=== PATIENT | male | born 1980 | race Caucasian/White ===

== ENCOUNTER 2022-08-31 05:02 | Day surgery (SDC) | payer MEDICARE, MEDICAID ==
[2022-08-21 16:44] LABS: CLARITY,URINE CLEAR (Clear); COLOR,URINE YELLOW (Yellow); GLUCOSE, URINE NEGATIVE (Neg); KETONES,URINE NEGATIVE (Neg); LEUKOCYTE ESTERASE ,URINE NEGATIVE (Neg); NITRITES, URINE NEGATIVE (Neg); OCCULT BLOOD,URINE NEGATIVE (Neg); PH,URINE 6.5 (4.8-8.0); PROTEIN,URINE NEGATIVE (Neg); UROBILINOGEN,URINE 0.2 E.U/dL (0.2-1.0)
[2022-08-21 16:48] LABS: UA COLLECTION TYPE CLN CATCH MIDSTREAM
[~2022-08-31] VITALS: Ht 180.3 cm; Wt 81.1 kg
[2022-08-31] VITALS (16 sets, daily range): BP systolic 103–134; BP diastolic 64–97
[~2022-08-31 05:02] MED LIST: BENZTROPINE PO; BUSP7.5T3 PO; CHLO200T20 PO; CHLO25TA68 PO; CYCL-394 PO; DIVA500T2 PO; GABA300S PO; PALI6TAB PO; PRAZ5CAP PO; TRAM50TA2 PO; [UNRECOGNIZED DRUG - CODE] PO; ringers solution, lacted 1,000 ML IV SCH
[2022-08-31] MEDS ORDERED: famotidine 20mg tablet PO ONE (05:30)
[2022-08-31] MEDS ORDERED: vancomycin 1,500 MG in NS 300ml IV soln IV ONE (05:30)
[2022-08-31] MEDS ORDERED: BUPIVAcaine 0.5% inj/PF 0 ML ONE (06:49)
[2022-08-31] MEDS ORDERED: bacitracin 15gm ointment TP ONE ×2 (06:49→15:00)
--- NOTE | 2022-08-31 08:30 | NUR ---
PT ARRIVED FOR SURGERY WITH REAL ESTATE MANAGEMENT SPECIALIST. PT STATES HE HAS A CONSERVATOR FOR HIS FINANCES BUT HE MAKES ALL MEDICAL DECISIONS AND IS ABLE TO CONSENT FOR SURGERY. ATTEMPTED TO CONTACT CONSERVATOR TO VERIFY. LEFT VOICE MESSAGE AND DID NOT RECEIVE CALL BACK. PT IS ALERT AND ORIENTED X4 AND HAS BEEN COOPERATIVE AND POLITE.
[2022-08-31] MEDS ORDERED: labetalol 20mg/4ml (5mg/ml) syringe IV PRN (09:35)
[2022-08-31] MEDS ORDERED: fentaNYL/PF 50MCG/1 ML 2ML syringe IV PRN ×2 (09:35)
[2022-08-31] MEDS ORDERED: hydrALAZINE 20mg/ml inj. IV PRN (09:35)
[2022-08-31] MEDS ORDERED: morphine 2 MG/ML inj. syringe IV PRN (09:35)
[2022-08-31] MEDS ORDERED: morphine 4 MG/ML inj SYRINge IV PRN (09:35)
[2022-08-31] MEDS ORDERED: ondansetron/PF 4mg/2ml inj IV PRN (09:35)
[2022-08-31] MEDS ORDERED: ringers solution, lacted 1,000 ML IV SCH (09:35)
[2022-08-31] MEDS ORDERED: ATIVAN (09:41)
[2022-08-31 09:43] LABS: BASOPHILS % (AUTO) 0.9 % (0-1); EOSINOPHILS % (AUTO) 0.2 % (0-6); LYMPHOCYTES # (AUTO) 1.1 X10'3 (1.1-4.8); LYMPHOCYTES % (AUTO) 33.2 % (21-51); MEAN CORPUSCULAR HEMOGLOBIN 34.5 PG (27.0-31.0); MEAN CORPUSCULAR VOLUME 98.6 FL (78-98); MEAN PLATELET VOLUME 7.6 FL (7.4-10.4); MONOCYTES # (AUTO) 0.4 X10'3 (0-0.9); MONOCYTES % (AUTO) 10.6 % (2-12); NEUTROPHILS # (AUTO) 1.9 X10'3 (1.8-7.7); NEUTROPHILS % (AUTO) 55.1 % (42-75); PRE OP HEMATOCRIT 44.5 % (42.0-52.0); PRE OP HEMOGLOBIN 15.5 g/dL (14.0-17.9); PRE OP PLATELET COUNT 101 X10'3 (140-440); RED BLOOD COUNT 4.51 X10'6 (4.70-6.10); RED CELL DISTRIBUTION WIDTH 13.2 % (11.5-14.5)
[2022-08-31 10:04] LABS: ALBUMIN 3.6 G/DL (3.4-5.0); ALKALINE PHOSPHATASE 67 IU/L (46-116); BLOOD UREA NITROGEN 7 MG/DL (7-18); BUN/CREATININE RATIO 7.4 (5.4-32.0); CHLORIDE 106 MMOL/L (99-107); CREATININE 0.94 MG/DL (0.60-1.10); PRE OP ANION GAP 9 (8-16); PRE OP AST 92 U/L (10-37); PRE OP BILIRUB, TOTAL 0.8 MG/DL (0.0-1.0); PRE OP GLUCOSE 94 MG/DL (70-104); PRE OP POTASSIUM 4.1 MMOL/L (3.4-5.1); PRE OP SODIUM 139 MMOL/L (135-145); TOTAL CARBON DIOXIDE 23.6 MMOL/L (24-32); TOTAL PROTEIN 7.3 G/DL (6.4-8.2); eGFR 89 ML/MIN
[2022-08-31 10:41] LABS: PRE OP ALT 127 U/L (30-65)
--- NOTE | 2022-08-31 10:47 | NUR ---
RECEIVED 2 RN CONSENT FOR SURGERY VIA PHONE WITH CONSERVATOR ROSARIO ANSARI. ROSARIO CONFIRMED PT ABLE TO SIGN HIMSELF REGARDING THE SURGERY. MD JOHNSON.
[2022-08-31] MEDS ORDERED: dexamethasone sod phosphate 4mg/ml inj. ONE (10:56)
[2022-08-31] MEDS ORDERED: ondansetron/PF 4mg/2ml inj ONE (10:56)
[2022-08-31] MEDS ORDERED: LIDOcaine 1%/PF 5ML 10 MG/ML VIAL ONE (10:56)
[2022-08-31] MEDS ORDERED: propofol inj 20 ML IV ONE (10:56)
[2022-08-31] MEDS ORDERED: midazolam 1 mg/ML 2ml injection ONE (10:56)
[2022-08-31] MEDS ORDERED: fentaNYL/PF 50MCG/1 ML 2ML syringe ONE ×2 (10:56→14:10)
[2022-08-31] MEDS ORDERED: ROPIVAcaine 0.5% (5mg/ml) 30ml vial ONE ×2 (10:58)
[2022-08-31] MEDS ORDERED: sevoflurane 250ml liquid IH ONE (11:07)
[2022-08-31] MEDS ORDERED: ketorolac trometh. 30mg/ml inj. ONE (13:55)
[2022-08-31] MEDS ORDERED: acetaminophen 1,000mg/100ml IV 100 ML IV ONE (13:57)
--- NOTE | 2022-08-31 16:10 | NUR ---
Received from OR via [facility], accompanied by Anesthesiologist DR FLEMING and report given by Anesthesiolgist. PT PRESENTS WITH PIV 20G RIGHT FOREARM, 18G RIGHT EJ, RIGHT LOWER LEG SPLNIT WITH CHAVA WRAP [facility] MOSES. Addendum: 08/31/22 at 1632 by Jessica Cornelius RN, RN Amended: Links added.
--- NOTE | 2022-08-31 18:30 | NUR ---
I HAVE REVIEWED D/C INSTRUCTIONS WITH PATIENT AND THEY HAVE VERBALIZED UNDERSTANDING OF INSTRUCTIONS. PATIENT D/C HOME WITH ALL BELONGINGS AND FAMILY GAVE TRANSPORT. PT GIVEN BLUE FOAM LEG ELEVATOR, PT GIVEN CRUTCHES FOR HOME USE. Addendum: 08/31/22 at 1903 by Jessica Cornelius RN, RN Amended: Links added.
== END 2022-08-31 18:30 | disposition home or self-care (01) ==
LOC: PAS 05:02
PROVIDERS: ATTEND Podiatrist Foot & Ankle Surgery
DX: M87.874 Other osteonecrosis, right foot (principal); M19.071 Primary osteoarthritis, right ankle and foot; M21.6X1 Other acquired deformities of right foot; I10 Essential (primary) hypertension; F31.9 Bipolar disorder, unspecified; F20.9 Schizophrenia, unspecified; B19.20 Unspecified viral hepatitis C without hepatic coma; G89.18 Other acute postprocedural pain; Z79.899 Other long term (current) drug therapy; Z88.0 Allergy status to penicillin; Z98.890 Other specified postprocedural states; F17.210 Nicotine dependence, cigarettes, uncomplicated; Z96.611 Presence of right artificial shoulder joint; Z96.612 Presence of left artificial shoulder joint; Z96.643 Presence of artificial hip joint, bilateral; Z82.49 Family history of ischemic heart disease and other diseases of the circulatory system
CPT/HCPCS: 0232T; 27698; 27707; 28120; 28725; 36415; 38232; 64445; 64447; 73620; 76000; 80053; 81003; 82948; 85025; 93005; A6223; C1713; C1776; J0131; J1100; J1644; J1885; J2250; J2405; J2704; J2795; J3010; J3370; J3490; J7030; J7040; J7120; Z7506; Z7508; Z7512; A4215; A4618; A6449; A7000; C1769; S0020